=== PATIENT | female | born 1940 | race Caucasian/White ===

== ENCOUNTER 2017-11-14 13:02 | Inpatient (IN) | payer OTHER, MEDICARE ==
[~2017-11-14] VITALS: Ht 165.1 cm; Wt 74.8 kg
[2017-11-14 13:05] VITALS: BP 137/47
--- NOTE | 2017-11-14 13:19 | NUR ---
SUTURES REMOVED NO BLEEDING NO DRAINAGE.
--- NOTE | 2017-11-14 13:19 | NUR ---
PT AMBULATES TO BED 11
--- NOTE | 2017-11-14 13:22 | NUR ---
REPORT GIVEN TO JESUS RN, PT AMBULATED TO BED 11
--- NOTE | 2017-11-14 13:25 | NUR ---
PATIENT PRESENTS TO ED WITH COMPLAINTS OF WEAKNESS, SLOW HEARTBEAT, AND LOW BLOOD PRESSURE. PATIENT STATES SHE WAS AT DR OFFICE THIS MORNING FOR SAME ISSUE AND THEY ADVISED HER TO VISIT THE ER. DENIES N/V/D; SKIN IS PINK/WARM/DRY; AAOX4 WITH EVEN AND STEADY GAIT; LUNGS CLEAR BL; HR SLOW; PT DENIES ANY FEVER, CP, SOB, OR COUGH AT THIS TIME; PATIENT STATES PAIN OF 0/10 AT THIS TIME; VSS; PATIENT POSITIONED FOR COMFORT; HOB ELEVATED; BEDRAILS UP X1; BED DOWN. ER MD MADE AWARE OF PT STATUS.
[2017-11-14 14:41] LABS: BASOPHILS % (AUTO) 0.3 % (0.0-2.0); EOSINOPHILS % (AUTO) 0.5 % (0.0-4.0); HEMATOCRIT 30.9 % (36-48); HEMOGLOBIN 10.1 g/dL (12.0-16.0); LYMPHOCYTES # (AUTO) 2.2 K/uL (2.5-16.5); LYMPHOCYTES % (AUTO) 24.4 % (20.5-51.1); MEAN CORPUSCULAR HEMOGLOBIN 29 pg (27-31); MEAN CORPUSCULAR HGB CONC 33 g/dL (33-37); MEAN CORPUSCULAR VOLUME 88.6 fL (80-94); MONOCYTES # (AUTO) 1.2 K/uL (0.8-1.0); MONOCYTES % (AUTO) 12.8 % (1.7-9.3); NEUTROPHILS # (AUTO) 5.6 K/uL (1.8-7.7); PLATELET COUNT (AUTO) 233 K/uL (140-450); RED BLOOD CELL COUNT(AUTO) 3.49 MIL/uL (4.20-5.40)
[2017-11-14 14:47] LABS: APPEARANCE,URINE CLEAR (CLEAR); BLOOD, URINE NEGATIVE (NEGATIVE); COLOR,URINE YELLOW (YELLOW); LEUKOCYTE ESTERASE ,URINE 1+ (NEGATIVE); NITRITE, URINE POSITIVE (NEGATIVE); PH,URINE 5.5 (5.0-9.0); UGLUCOSE NEGATIVE (NEGATIVE)
[2017-11-14 14:57] LABS: PROTHROMBIN TIME 9.7 secs (10.8-13.4)
[2017-11-14 14:59] LABS: ANION GAP 9.1 (8-16); CHLORIDE 100 mmol/L (98-107); CREATININE 0.9 mg/dL (0.6-1.3); GLUCOSE 116 mg/dL (74-106); POTASSIUM 4.1 mmol/L (3.5-5.1); SODIUM SERUM 134 mmol/L (136-145); UREA NITROGEN, BLOOD 18 mg/dL (7-18)
[2017-11-14 15:03] LABS: BILIRUBIN,URINE NEGATIVE (NEGATIVE)
[2017-11-14 15:06] LABS: ASPARTATE AMINOTRANSFERASE 11 U/L (15-37); TOTAL BILIRUBIN 0.2 mg/dL (0.0-1.0)
[2017-11-14 15:29] LABS: RBC,URINE 3-10 (FEW) /HPF (0-5); WBC,URINE 16-25 (MOD) /HPF (0-5)
--- NOTE | 2017-11-14 15:34 | NUR ---
ESCORTED DR. SANCHEZ AT THIS TIME FOR RECTAL EXAM
[2017-11-14] MEDS ORDERED: INSULIN LISPRO SLIDING SCALE 100 UNITS/ML VIAL SUBQ PRN (17:05)
[2017-11-14] MEDS ORDERED: DEXTROSE 50% 50 ML SYR IVP PRN (17:05)
[2017-11-14] MEDS ORDERED: ONDANSETRON 4 MG/2 ML VIAL IVP PRN (17:05)
--- NOTE | 2017-11-14 17:56 | NUR ---
PT TAKEN TO FLOOR BY FOREIGN SALINAS AND EMT REJI
--- NOTE | 2017-11-14 17:56 | NUR ---
Patient will be admitted to care of DR. CAST. Admited to TELE. Will go to room 124B. Belongings list completed. Report to FOREIGN ESCAMILLA.
--- NOTE | 2017-11-14 18:10 | NUR ---
PATIENT ADMITTED TO THE UNIT FROM ER. PATIENT AWAKE, ALERT AND AMBULATORY. NO S/S OF DISTRESS. PATIENT IS ON ROOM AIR. NO SOB. NO C/O PAIN AT THIS TIME. PATIENT REPORTS GENERALIZED WEAKNESS. PATIENT PLACED ON TELE MONITORING. BED LOWERED WITH CALL LIGHT WITHIN REACH. DAUGHTER AT BEDSIDE
[2017-11-14] MEDS: LEVOFLOXACIN 250 MG/D5 PREMIX 50 ML IV SCH (18:26)
[2017-11-14 18:38] VITALS: BP 137/54
--- NOTE | 2017-11-14 19:21 | NUR ---
PATIENT REPORT GIVEN AT BEDSIDE. PATIENT ENDORSED IN STABLE CONDITION
--- NOTE | 2017-11-14 19:22 | NUR ---
RECEIVED BEDSIDE REPORT FROM DAY SHIFT NURSE FRANCINE RN, PT STABLE, NO DISTRESS NOTED, IV TO RAC 20G RUNNING LEVAQUIN @50ML/HR, PATENT, INTACT, INFUSING WELL, PT ON ROOM AIR, NO SOB, INITIAL ASSESSMENT DONE, ALL SAFETY PRECAUTION DONE, CALL LIGHT WITHIN REACH, WILL CONTINUE TO MONITOR.
[2017-11-14] MEDS: ACETAMINOPHEN 325 MG TAB PO PRN (19:51)
[2017-11-14 20:00] VITALS: BP_SYST 149; BP_SYST 87; BP_DIAS 30; BP_DIAS 41
[2017-11-14] MEDS ORDERED: LORA-476 PO (20:25)
[2017-11-14] MEDS ORDERED: ESCI10TA PO (20:25)
[2017-11-14] MEDS ORDERED: FAMO-90 PO (20:25)
[2017-11-14] MEDS ORDERED: METF1TER PO (20:25)
[2017-11-14] MEDS ORDERED: ENAL5TAB20 PO (20:25)
[2017-11-14] MEDS ORDERED: FERR325E14 PO (20:25)
[2017-11-14] MEDS ORDERED: OSC500 PO (20:25)
[2017-11-14] MEDS ORDERED: ORE25 PO (20:25)
[2017-11-14] MEDS ORDERED: SIMV10TA1 PO (20:25)
[2017-11-14] MEDS ORDERED: MECL-322 PO (20:25)
[2017-11-14] MEDS ORDERED: METO25TE2 PO (20:25)
[2017-11-14] MEDS ORDERED: MONT10TA35 PO (20:25)
[2017-11-14] MEDS ORDERED: [UNRECOGNIZED DRUG - OTHER] PO (20:26)
--- NOTE | 2017-11-14 20:34 | NUR ---
CALLED DR. CAST REGARDING NS ORDER WITH NO RATE, NOTIFIED REGARDING PT BP 87/30 ON THE L ARM AND 149/41 ON THE RIGHT ARM, STATED TO ORDER 100ML/HR, AND TO ORDER US OF THE ABD TO R/O AORTIC ANEURYSM. WILL PUT IN ORDERS AND CONTINUE WITH ORDERS.
[2017-11-14] MEDS: NACL 0.9% 1,000 ML IV SCH (21:33)
--- NOTE | 2017-11-14 21:33 | NUR ---
PT BLOOD SUGAR CHECKED, BS 92, NO INSULIN GIVEN PER PROTOCOL, PT RESTING, NO DISTRESS NOTED, CALL LIGHT WITHIN REACH, WILL CONTINUE TO MONITOR.
[2017-11-14] MEDS: BLOOD GLUCOSE MONITORING 1 DEV DEV FS SCH (21:34)
[2017-11-14 22:14] LABS: CREATINE KINASE MB 0.6 ng/mL (0-3.6)
--- NOTE | 2017-11-14 23:45 | NUR ---
CHECKED ON PT, PT SLEEPING, NO DISTRESS NOTED, V/S TAKEN, WITHIN PT BASELINE, CALL LIGHT WITHIN REACH, WILL CONTINUE TO MONITOR.
[2017-11-15] VITALS: BP_SYST 100; BP_SYST 148; BP_DIAS 34; BP_DIAS 42
[2017-11-15 04:00] VITALS: BP_SYST 113; BP_SYST 155; BP_DIAS 34; BP_DIAS 42
--- NOTE | 2017-11-15 04:11 | NUR ---
CHECKED ON PT, PT SLEEPING, NO DISTRESS NOTED, V/S TAKEN ,WITHIN PT BASELINE, NO DISTRESS NOTED, CALL LIGHT WITHIN REACH, WILL CONTINUE TO MONITOR.
[2017-11-15] MEDS: BLOOD GLUCOSE MONITORING 1 DEV DEV FS SCH ×4 (06:08→20:39)
--- NOTE | 2017-11-15 06:08 | NUR ---
CHECKED PT BLOOD SUGAR 90, NO INSULIN GIVEN PER PROTOCOL, PT RESTING, NO DISTRESS NOTED, CALL LIGHT WITHIN REACH, WILL CONTINUE TO MONITOR.
[2017-11-15 06:40] LABS: BASOPHILS % (AUTO) 0.3 % (0.0-2.0); EOSINOPHILS % (AUTO) 0.6 % (0.0-4.0); HEMATOCRIT 29.9 % (36-48); HEMOGLOBIN 9.9 g/dL (12.0-16.0); LYMPHOCYTES % (AUTO) 28.4 % (20.5-51.1); MEAN CORPUSCULAR HEMOGLOBIN 29 pg (27-31); MEAN CORPUSCULAR HGB CONC 33 g/dL (33-37); MEAN CORPUSCULAR VOLUME 88.1 fL (80-94); MONOCYTES # (AUTO) 0.9 K/uL (0.8-1.0); MONOCYTES % (AUTO) 12.6 % (1.7-9.3); NEUTROPHILS # (AUTO) 4.2 K/uL (1.8-7.7); NEUTROPHILS % (AUTO) 58.1 % (42.2-75.2); PLATELET COUNT (AUTO) 221 K/uL (140-450); RED BLOOD CELL COUNT(AUTO) 3.39 MIL/uL (4.20-5.40); RED CELL DISTRIBUTION WIDTH 14.6 % (11.6-13.7); WHITE BLOOD COUNT (AUTO) 7.1 K/uL (4.8-10.8)
[2017-11-15 06:53] LABS: CARBON DIOXIDE 30.8 mmol/L (21-32); CHLORIDE 104 mmol/L (98-107); CREATININE 0.8 mg/dL (0.6-1.3); GLUCOSE 92 mg/dL (74-106); POTASSIUM 4.8 mmol/L (3.5-5.1); SODIUM SERUM 137 mmol/L (136-145); UREA NITROGEN, BLOOD 15 mg/dL (7-18)
[2017-11-15 07:14] LABS: CREATINE KINASE MB 0.6 ng/mL (0-3.6)
--- NOTE | 2017-11-15 07:24 | NUR ---
ENDORSED PT TO DAY SHIFT NURSE LIONEL RN, PT STABLE, NO DISTRESS NOTED, CALL LIGHT WITHIN REACH.
--- NOTE | 2017-11-15 07:25 | NUR ---
RECEIVED BEDSIDE REPORT FROM STIPPLER NURSE. PATIENT IS AWAKE, ALERT AND ORIENTEDX4. NO SIGNS OF DISTRESS ON ROOM AIR. FALL PRECAUTIONS IN PLACE. PATIENT ABLE TO AMBULATE W ASSISTANCE. NO YELLOW GOWNS AT THIS TIME. SKIN IS INTACT. TELE MONITOR IN PLACE. IV ON R AC 20G INFUSING NS AT 100. CLEAN, DRY AND INTACT. NO COMPLAINTS AT THIS TIME. BED IN LOW POSITION. CALL LIGHT WITHIN REACH. WILL CONTINUE TO MONITOR
[2017-11-15 08:00] VITALS: BP_SYST 134; BP_SYST 155; BP_DIAS 39; BP_DIAS 42
--- NOTE | 2017-11-15 08:39 | NUR ---
PATIENT HAS BEEN SCREENED AND CATEGORIZED MODERATE NUTRITION RISK. PATIENT WILL BE SEEN WITHIN 3-5 DAYS OF ADMISSION. 10/17/17 10/19/[address]
[2017-11-15] MEDS: NACL 0.9% 1,000 ML IV SCH ×2 (09:33→13:04)
[2017-11-15] MEDS: ENOXAPARIN 40 MG/0.4 ML SYR SUBQ SCH (09:35)
--- NOTE | 2017-11-15 09:39 | NUR ---
ADMINISTERED MEDS. PATIENT TOLERATED WELL. BED IN LOW POSITION. CALL LIGHT WITHIN REACH. FAMILY AT BEDSIDE
[2017-11-15] MEDS ORDERED: MECLIZINE 25 MG TAB PO PRN (10:25)
[2017-11-15] MEDS ORDERED: LORazepam 0.5 MG TAB PO PRN (10:25)
--- NOTE | 2017-11-15 10:48 | NUR ---
PATIENT WATCHING TV. NO SIGNS OF DISTRESS. FAMILY AT BEDSIDE.
[2017-11-15 12:00] VITALS: BP_SYST 122; BP_SYST 161; BP_DIAS 42; BP_DIAS 48
--- NOTE | 2017-11-15 12:07 | NUR ---
PATIENT SITTING IN BED. NO SIGNS OF DISTRESS. BED IN LOW POSITION. CALL LIGHT WITHIN REACH. WILL CONTINUE TO MONITOR THE PATIENT
--- NOTE | 2017-11-15 13:05 | NUR ---
CM NOTE INITIAL REVIEW FAXED TO [facility] [phone]
[2017-11-15] MEDS: ACETAMINOPHEN 325 MG TAB PO PRN ×2 (13:57→20:36)
--- NOTE | 2017-11-15 13:58 | NUR ---
PATIENT COMPLAINTS OF A HYLTON. ADMINISTERED PRN TYLENOL. PATIENT TOLERATED WELL. BED IN LOW POSITION. CALL LIGHT WITHIN REACH. WILL CONTINUE TO MONITOR. FAMILY AT BEDSIDE.
[2017-11-15 16:00] VITALS: BP_SYST 144; BP_SYST 180; BP_DIAS 43; BP_DIAS 48
--- NOTE | 2017-11-15 16:06 | NUR ---
PATIENT W FAMILY AT BEDSIDE. NO SIGNS OF DISTRESS ON ROOM AIR. BED IN LOW POSITION. CALL LIGHT WITHIN REACH. WILL CONTINUE TO MONITOR THE PATIENT.
[2017-11-15] MEDS: LEVOFLOXACIN 250 MG/D5 PREMIX 50 ML IV SCH (18:11)
--- NOTE | 2017-11-15 18:12 | NUR ---
ADMINISTERED MEDS. PATIENT TOLERATED WELL. BED IN LOW POSITION. CALL LIGHT WITHIN REACH. FAMILY AT BEDSIDE. PATIENT IS EATING DINNER
--- NOTE | 2017-11-15 19:23 | NUR ---
GAVE BEDSIDE REPORT TO CORNER CUTTER MACHINE OPERATOR NURSE. PATIENT ENDORSED IN STABLE CONDITION
--- NOTE | 2017-11-15 19:24 | NUR ---
RECEIVED BEDSIDE REPORT FROM DAY SHIFT NURSE LIONEL RN, PT STABLE, NO DISTRESS NOTED, IV TO R AC 20G PATENT, INTACT, INFUSING WELL, PT ON ROOM AIR, NO SOB, FAMILY AT BEDSIDE, INITIAL ASSESSMENT DONE, ALL SAFETY PRECAUTION MET, WILL CONTINUE TO MONITOR.
[2017-11-15 20:00] VITALS: BP_SYST 129; BP_SYST 180; BP_DIAS 43; BP_DIAS 52
--- NOTE | 2017-11-15 20:00 | NUR ---
PT RESTING, V/S TAKEN, PT STATED HAVING HEADACHE, 4/10, PT IS HAVING US AT THIS MOMENT, WILL MEDICATE PT WHEN PROCEDURE IS DONE.
--- NOTE | 2017-11-15 20:39 | NUR ---
PT STATED HAVING HEADACHE 07/10, TYLENOL ORDERED ADMINISTERED, DUE MEDICATION ALSO ADMINISTERED, PT TOLERATED WELL, NO DISTRESS NOTED, FAMILY AT BEDSIDE, CALL LIGHT WITHIN REACH, WILL CONTINUE TO MONITOR.
[2017-11-15] MEDS ORDERED: SIMVASTATIN 10 MG TAB PO SCH (21:00)
[2017-11-15] MEDS ORDERED: HYDROcodone/APAP 5/325 MG 1 TAB TAB PO PRN (21:20)
--- NOTE | 2017-11-15 21:22 | NUR ---
CALLED DR. REDMOND REGARDING PT STATEMENT THAT PAIN MEDICATION TYLENOL IS NOT WORKING AND HER HEADACHE IS WORSENING, PT STATED IS NOT ALLERGIC TO MORPHINE OR IBUPROFEN STATED IN HMR, DR. REDMOND ORDERED NORCO 5/325MG Q6H PRN PAIN, WILL PUT IN ORDER, AND CONTINUE WITH ORDERS.
--- NOTE | 2017-11-15 23:11 | NUR ---
CHECKED ON PT SLEEPING, NO DISTRESS NOTED, V/S TAKEN, WITHIN PT BASELINE, NO DISTRESS NOTED, CALL LIGHT WITHIN REACH, WILL CONTINUE TO MONITOR.
[2017-11-16] VITALS: BP_SYST 111; BP_SYST 160; BP_DIAS 44; BP_DIAS 49
[2017-11-16 04:00] VITALS: BP_SYST 128; BP_SYST 170; BP_DIAS 48; BP_DIAS 53
--- NOTE | 2017-11-16 04:10 | NUR ---
PT RESTING, NO DISTRESS NOTED, CALL LIGHT WITHIN REACH, WILL CONTINUE TO MONITOR.
[2017-11-16] MEDS: NACL 0.9% 1,000 ML IV SCH (05:30)
[2017-11-16] MEDS: BLOOD GLUCOSE MONITORING 1 DEV DEV FS SCH (05:30)
--- NOTE | 2017-11-16 05:30 | NUR ---
CHECKED ON PT, PT RESTING, CHECKED PT BLOOD SUGAR, 90, NO INSULIN GIVEN PER PROTOCOL, PT TOLERATED WELL, NO DISTRESS NOTED CALL LIGHT WITHIN REACH, WILL CONTINUE TO MONITOR.
--- NOTE | 2017-11-16 07:27 | NUR ---
ENDORSED PT TO DAY SHIFT NURSE LIONEL RN, PT STABLE, NO DISTRESS NOTED, CALL LIGHT WITHIN REACH.
--- NOTE | 2017-11-16 07:30 | NUR ---
RECEIVED BEDSIDE REPORT FROM EMBALMER/FUNERAL DIRECTOR NURSE. PATIENT IS AWAKE, ALERT, AND ORIENTEDX4. NO SIGNS OF DISTRESS ON ROOM AIR. FALL PRECAUTIONS ARE IN PLACE. SHE AMBULATES W ASSISTANCE TO THE RESTROOM D/T GEN WEAKNESS. SKIN IS INTACT. R AC 20G INFUSING NS AT 100. CLEAN, DRY AND INTACT. NO COMPLAINTS AT THIS TIME. BED IN LOW POSITION. CALL LIGHT WITHIN REACH. WILL CONTINUE TO MONITOR
[2017-11-16 08:00] VITALS: BP_SYST 138; BP_SYST 174; BP_DIAS 57; BP_DIAS 63
[2017-11-16] MEDS ORDERED: metFORMIN 500 MG TAB PO SCH (08:00)
[2017-11-16] MEDS ORDERED: FERROUS SULFATE 325 MG TABEC PO SCH (08:00)
[2017-11-16] MEDS: ENOXAPARIN 40 MG/0.4 ML SYR SUBQ SCH (08:34)
--- NOTE | 2017-11-16 08:36 | NUR ---
ADMINISTERED MEDS. PATIENT TOLERATED WELL. NO COMPLAINTS AT THIS TIME. WILL CONTINUE TO MONITOR THE PATIENT. BED IN LOW POSITION. CALL LIGHT WITHIN REACH
[2017-11-16] MEDS ORDERED: ENALAPRIL 5 MG TAB PO SCH (09:00)
[2017-11-16] MEDS ORDERED: ESCITALOPRAM 20 MG TAB PO SCH (09:00)
[2017-11-16] MEDS ORDERED: MONTELUKAST SODIUM 10 MG TAB PO SCH (09:00)
--- NOTE | 2017-11-16 10:55 | NUR ---
EDUCATED PATIENT AND DAUGHTER ON DISEASE PROCESS, ABN S/SX AND WHEN TO GO TO THE NEAREST ER, EDUCATED TO CONTINUE ALL MEDS EXCEPT METROPOLOL, EDUCATED ON F/U W PCP. PATIENT AND DAUGHTER VERBALIZED UNDERSTANDING. ALL PAPERWORK SIGNED. ID BANDS REMOVED. TELE MONITOR REMOVED. IV REMOVED, IV TIP WAS INTACT. PATIENT LEFT IN WHEELCHAIR W DAUGHTER IN STABLE CONDITION.
--- NOTE | 2017-11-16 11:26 | NUR ---
CM NOTE CONCURRENT REVIEW FAXED TO [facility] [phone]
== END 2017-11-16 10:55 | disposition home or self-care (01) | DRG 48 ==
LOC: MED 13:02 → MTU 17:14
PROVIDERS: ADMIT Hospitalist; ATTEND Hospitalist
DX: G90.8 Other disorders of autonomic nervous system (principal); E11.9 Type 2 diabetes mellitus without complications; N39.0 Urinary tract infection, site not specified; E87.1 Hypo-osmolality and hyponatremia; R00.1 Bradycardia, unspecified; I10 Essential (primary) hypertension; Z88.0 Allergy status to penicillin; Z88.5 Allergy status to narcotic agent; E78.5 Hyperlipidemia, unspecified; I25.10 Atherosclerotic heart disease of native coronary artery without angina pectoris; Z95.5 Presence of coronary angioplasty implant and graft; Z88.8 Allergy status to other drugs, medicaments and biological substances; Z90.710 Acquired absence of both cervix and uterus; K52.9 Noninfective gastroenteritis and colitis, unspecified; K57.90 Diverticulosis of intestine, part unspecified, without perforation or abscess without bleeding; F17.210 Nicotine dependence, cigarettes, uncomplicated
CPT/HCPCS: 36415; 71045; 76700; 80048; 80053; 81001; 82550; 82553; 82948; 83735; 83880; 84443; 84484; 85025; 85610; 85730; 87081; 87086; 93005; 93930; 97110; 99285; J1650; J1815; J1956; J7030; Q0092

== ENCOUNTER 2018-03-09 12:29 | Inpatient (IN) | payer OTHER, MEDICARE ==
[~2018-03-09] VITALS: Ht 165.1 cm; Wt 72.6 kg
[~2018-03-09 12:29] MED LIST: ENAL5TAB20 PO; ESCI10TA PO; FAMO-90 PO; FERR325E14 PO; LORA-476 PO; MECL-322 PO; METF1TER PO; MONT10TA35 PO; ORE25 PO; OSC500 PO; SIMV10TA1 PO; [UNRECOGNIZED DRUG - OTHER] PO
--- NOTE | 2018-03-09 12:37 | NUR ---
PT AMBULATES TO BED 7 Addendum: 03/09/18 at 1237 by MEDHT BED 8
[2018-03-09 12:42] VITALS: BP 182/69
--- NOTE | 2018-03-09 12:50 | NUR ---
c/o fatigue, bodyaches, cough, congestion x 9 days. VSS; PATIENT POSITIONED FOR COMFORT; HOB ELEVATED; BEDRAILS UP X1; BED DOWN. ER MD MADE AWARE OF PT STATUS.
--- NOTE | 2018-03-09 12:52 | NUR ---
XRAY AT BEDSIDE
[2018-03-09] MEDS ORDERED: NACL 0.9% 500 ML IV SCH (13:30)
[2018-03-09 13:51] LABS: BASOPHILS % (AUTO) 0.4 % (0.0-2.0); EOSINOPHILS % (AUTO) 0.7 % (0.0-4.0); HEMATOCRIT 38.4 % (36-48); HEMOGLOBIN 12.1 g/dL (12.0-16.0); LYMPHOCYTES # (AUTO) 2.4 K/uL (2.5-16.5); LYMPHOCYTES % (AUTO) 36.7 % (20.5-51.1); MEAN CORPUSCULAR HEMOGLOBIN 28 pg (27-31); MEAN CORPUSCULAR HGB CONC 32 g/dL (33-37); MONOCYTES # (AUTO) 0.9 K/uL (0.8-1.0); NEUTROPHILS # (AUTO) 3.3 K/uL (1.8-7.7); NEUTROPHILS % (AUTO) 49.2 % (42.2-75.2); PLATELET COUNT (AUTO) 219 K/uL (140-450); RED BLOOD CELL COUNT(AUTO) 4.41 MIL/uL (4.20-5.40); RED CELL DISTRIBUTION WIDTH 15.1 % (11.6-13.7); WHITE BLOOD COUNT (AUTO) 6.6 K/uL (4.8-10.8)
--- NOTE | 2018-03-09 14:00 | NUR ---
PT SLEEPING, DAUGHTER IS AT BEDSIDE.
[2018-03-09 14:11] LABS: APPEARANCE,URINE CLEAR (CLEAR); BILIRUBIN,URINE NEGATIVE (NEGATIVE); BLOOD, URINE NEGATIVE (NEGATIVE); COLOR,URINE YELLOW (YELLOW); LEUKOCYTE ESTERASE ,URINE NEGATIVE (NEGATIVE); NITRITE, URINE NEGATIVE (NEGATIVE); UGLUCOSE NEGATIVE (NEGATIVE)
[2018-03-09 14:17] LABS: PROTHROMBIN TIME 9.7 secs (10.8-13.4)
[2018-03-09 14:28] LABS: ANION GAP 14.9 (8-16); CARBON DIOXIDE 25.2 mmol/L (21-32); CHLORIDE 101 mmol/L (98-107); GLUCOSE 96 mg/dL (74-106); POTASSIUM 4.1 mmol/L (3.5-5.1); SODIUM SERUM 137 mmol/L (136-145)
[2018-03-09 14:29] LABS: ASPARTATE AMINOTRANSFERASE 17 U/L (15-37); TOTAL BILIRUBIN 0.2 mg/dL (0.0-1.0); UREA NITROGEN, BLOOD 17 mg/dL (7-18)
[2018-03-09 14:37] LABS: ALBUMIN 3.3 g/dL (3.4-5.0)
--- NOTE | 2018-03-09 16:00 | NUR ---
PT IS LAYING IN BED SPEAKING TO DAUGHTER.
[2018-03-09] MEDS ORDERED: CLOPIDOGREL 75 MG TAB PO ONE (16:10)
[2018-03-09] MEDS ORDERED: hydrALAZINE 20 MG/ML VIAL IVP ONE (16:45)
[2018-03-09] MEDS ORDERED: HYDROcodone/APAP 5/325 MG 1 TAB TAB PO PRN (16:50)
[2018-03-09] MEDS ORDERED: ONDANSETRON 4 MG/2 ML VIAL IVP PRN (16:50)
[2018-03-09] MEDS ORDERED: ACETAMINOPHEN 325 MG TAB PO PRN (16:50)
[2018-03-09] MEDS ORDERED: INSULIN LISPRO SLIDING SCALE 100 UNITS/ML VIAL SUBQ PRN (16:55)
[2018-03-09] MEDS ORDERED: METO25TA PO (17:31)
[2018-03-09] MEDS ORDERED: ASPI81CT89 PO (17:31)
[2018-03-09] MEDS ORDERED: CARV3.12 PO (17:31)
[2018-03-09] MEDS ORDERED: ALEN70TA52 PO (17:31)
--- NOTE | 2018-03-09 17:31 | NUR ---
PT TAKEN TO FLOOR BY RN RITA, EMT REJI, AND RN STUDENTS
[2018-03-09 17:40] VITALS: BP 170/52
--- NOTE | 2018-03-09 17:40 | NUR ---
Patient will be admitted to care of DR. CAST. Admited to TELE. Will go to room 112A. Belongings list completed. Report to PHAN CARRASQUILLO.
--- NOTE | 2018-03-09 17:40 | NUR ---
RECEIVED PT FROM ER NURSE VIA DANNA, PT IS ALERT AND AWAKE AND AMBULATED TO THE BED, PT WAS MADE COMFORTABLE ON THE BED, SIDE RAILS ARE UP AND CALL LIGHT WITHIN REACH. PT HAS AN IV LINE ON THE LEFT WRIST G. 22 ON SALINE LOCK. ALLERGY BAND NOTED AND PLACED TO PT. PT DENIES PAIN, INITIAL V/S WAS TAKEN AND BP RESULT IS 170/52, PULSE IS 71, TEMP IS 99 AND O2 SATURATION IS 98%. NO SIGN OF DISTRESS NOTED. WILL CONTINUE TO MONITOR PT.
--- NOTE | 2018-03-09 17:47 | NUR ---
MRSA SWAB DONE AND SAMPLE SENT TO LAB.
[2018-03-09] MEDS ORDERED: LEVOFLOXACIN 250 MG/D5 PREMIX 50 ML IV SCH (18:30)
--- NOTE | 2018-03-09 18:52 | NUR ---
PT IS AWAKE AND STARTED ON THE LEVOFLOXACIN AT A RATE OF 50ML/HR. PT TOLERATED IT AND NO SIGN OF DISTRESS NOTED. WILL, CONTINUE TO MONITOR PT.
--- NOTE | 2018-03-09 19:35 | NUR ---
ENDORSED PT TO AUTOMOTIVE PROFESSIONAL NURSEALLEGRA FOR CONTINUITY OF CARE, AND INFORMED AUTOMOTIVE PROFESSIONAL NURSE, ALLEGRA OF PT'S BP READING.NO SIGN OF DISTRESS NOTED.
--- NOTE | 2018-03-09 19:36 | NUR ---
RECEIVED REPORT FROM DAY SHIFT NURSE PHAN-RN AT BEDSIDE. PT RESTING IN BED, AOX4- MEXICAN SPEAKING, ON ROOM AIR WITH IV SITE ON LEFT WRIST #22G ON SALINE LOCK. ACTIVITY TOLERATED, ABLE TO AMBULATE TO BATHROOM- STABLE GAIT. DISCUSSED PLAN OF CARE AND PT VERBALIZED UNDERSTANDING. NO S/S OF RESPIRATORY DISTRESS OR DISCOMFORT NOTED AT THIS TIME. BED IN LOWEST POSITION, BED BREAKS ON, BOTH SIDE RAILS UP. BEDSIDE TABLE AND CALL LIGHT ARE WITHIN REACH. WILL CONTINUE TO MONITOR.
[2018-03-09 20:00] VITALS: BP 151/44
--- NOTE | 2018-03-09 20:00 | NUR ---
VITAL SIGNS TAKEN AND TOLERATED WELL. INCREASED BP NOTED. WILL RE-ASSESS. BLOOD GLUCOSE 92- WILL PROVIDE BEDTIME SNACK. NO S/S OF RESPIRATORY DISTRESS OR DISCOMFORT NOTED AT THIS TIME. WILL CONTINUE TO MONITOR.
[2018-03-09] MEDS: guaiFENesin/CODEINE 100/10MG 5 ML UDC PO SCH (20:42)
[2018-03-09] MEDS: BLOOD GLUCOSE MONITORING 1 DEV DEV FS SCH (20:42)
[2018-03-09] MEDS: ACETAMINOPHEN 325 MG TAB PO PRN (20:42)
--- NOTE | 2018-03-09 20:42 | NUR ---
SCHEDULED MEDICATION ROBITUSSIN GIVEN AND TOLERATED WELL. PT C/O HEADACHE AND TYLENOL WAS GIVEN. PT TOLERATED WELL. NO S/S OF RESPIRATORY DISTRESS OR DISCOMFORT NOTED AT THIS TIME. WILL CONTINUE TO MONITOR.
--- NOTE | 2018-03-09 22:00 | NUR ---
PT RESTING IN BED. NO S/S OF RESPIRATORY DISTRESS OR DISCOMFORT NOTED AT THIS TIME. WILL CONTINUE TO MONITOR.
[2018-03-10] VITALS: BP 127/54
--- NOTE | 2018-03-10 | NUR ---
VITAL SIGNS TAKEN AND TOLERATED WELL. BP HAS DECREASED. NO S/S OF RESPIRATORY DISTRESS OR DISCOMFORT NOTED AT THIS TIME. WILL CONTINUE TO MONITOR.
--- NOTE | 2018-03-10 02:00 | NUR ---
PT SLEEPING. NO S/S OF RESPIRATORY DISTRESS OR DISCOMFORT NOTED AT THIS TIME. WILL CONTINUE TO MONITOR.
[2018-03-10 04:00] VITALS: BP 148/51
--- NOTE | 2018-03-10 04:00 | NUR ---
VITAL SIGNS TAKEN AND TOLERATED WELL. NO S/S OF RESPIRATORY DISTRESS OR DISCOMFORT NOTED AT THIS TIME. WILL CONTINUE TO MONITOR.
--- NOTE | 2018-03-10 06:00 | NUR ---
BLOOD GLUCOSE 107- NO INSULIN COVERAGE NEEDED. PT RESTING IN BED. NO S/S OF RESPIRATORY DISTRESS OR DISCOMFORT NOTED AT THIS TIME. WILL CONTINUE TO MONITOR.
[2018-03-10] MEDS: BLOOD GLUCOSE MONITORING 1 DEV DEV FS SCH ×3 (06:22→16:59)
--- NOTE | 2018-03-10 07:04 | NUR ---
ENDORSED PT CARE TO DAY SHIFT NURSE ANGELICA-FOREIGN FOR CONTINUITY OF CARE.
--- NOTE | 2018-03-10 07:08 | NUR ---
RECEIVED BEDSIDE REPORT FROM DIGITAL CARTOGRAPHER RN. PT SLEEPING IN BED, AROUSABLE BY VOICE. AOX4. PRIMARILY MONGOLIAN SPEAKING. NO S/S RESPIRATORY DISTRESS. DENIES SOB AND CHEST PAIN. C/O MILD HEADACHE, WILL OFFER TYLENOL. IV SITE PATENT AND ASYMPTOMATIC, ON SL. PT IS AMBULATORY PER DIGITAL CARTOGRAPHER. ALL SAFETY PRECAUTIONS IN PLACE, WILL CONTINUE TO MONITOR.
[2018-03-10 08:00] VITALS: BP 146/47
[2018-03-10] MEDS: ACETAMINOPHEN 325 MG TAB PO PRN (08:44)
[2018-03-10] MEDS: guaiFENesin/CODEINE 100/10MG 5 ML UDC PO SCH (08:44)
--- NOTE | 2018-03-10 08:47 | NUR ---
SCHEDULED MEDS ADMINISTERED PER DR. LANDRY. ADMINISTERED TYLENOL FOR C/O 2/10 MILD HEADACHE. WILL CONTINUE TO MONITOR.
[2018-03-10] MEDS ORDERED: ENOXAPARIN 40 MG/0.4 ML SYR SUBQ SCH (09:00)
[2018-03-10 09:01] LABS: BASOPHILS % (AUTO) 0.2 % (0.0-2.0); EOSINOPHILS % (AUTO) 0.6 % (0.0-4.0); HEMATOCRIT 39.1 % (36-48); HEMOGLOBIN 12.3 g/dL (12.0-16.0); LYMPHOCYTES # (AUTO) 2.5 K/uL (2.5-16.5); LYMPHOCYTES % (AUTO) 40.8 % (20.5-51.1); MEAN CORPUSCULAR HEMOGLOBIN 27 pg (27-31); MEAN CORPUSCULAR HGB CONC 32 g/dL (33-37); MEAN CORPUSCULAR VOLUME 86.7 fL (80-94); MONOCYTES # (AUTO) 0.4 K/uL (0.8-1.0); MONOCYTES % (AUTO) 6.4 % (1.7-9.3); NEUTROPHILS # (AUTO) 3.1 K/uL (1.8-7.7); PLATELET COUNT (AUTO) 230 K/uL (140-450); RED CELL DISTRIBUTION WIDTH 15.2 % (11.6-13.7)
[2018-03-10 09:15] LABS: ALBUMIN 3.3 g/dL (3.4-5.0); ANION GAP 15.5 (8-16); ASPARTATE AMINOTRANSFERASE 15 U/L (15-37); CARBON DIOXIDE 25.3 mmol/L (21-32); CHLORIDE 101 mmol/L (98-107); CREATININE 0.9 mg/dL (0.6-1.3); GLUCOSE 171 mg/dL (74-106); POTASSIUM 3.8 mmol/L (3.5-5.1); SODIUM SERUM 138 mmol/L (136-145); TOTAL BILIRUBIN 0.2 mg/dL (0.0-1.0); UREA NITROGEN, BLOOD 13 mg/dL (7-18)
--- NOTE | 2018-03-10 11:05 | NUR ---
PT RESTING IN BED. FAMILY MEMBERS AT BEDSIDE. ALL SAFETY PRECAUTIONS IN PLACE, WILL CONTINUE TO MONITOR.
[2018-03-10 12:00] VITALS: BP 130/58
--- NOTE | 2018-03-10 12:45 | NUR ---
PT RESTING IN BED. VITALS STABLE. NO C/O PAIN OR DISCOMFORT AT THIS TIME. WILL CONTINUE TO MONITOR.
--- NOTE | 2018-03-10 14:28 | NUR ---
DR. CAST HAS SPOKEN TO PATIENT REGARDING PLAN OF CARE. PT CAN BE DISCHARGED IF OK BY RADIAL DRILL OPERATOR.
--- NOTE | 2018-03-10 15:28 | NUR ---
CALLED DR. LEON. PER DR. LEON, PATIENT IS OKAY TO HOME. DR. LEON WANTS PATIENT TO F/U WITH HIM WITHIN ONE WEEK.
[2018-03-10 16:00] VITALS: BP 133/58
[2018-03-10] MEDS ORDERED: INFLUENZA VIRUS VACCINE QUAD 0.5 ML SYR IMVAC PRN (16:35)
--- NOTE | 2018-03-10 17:36 | NUR ---
ASKED SWIMMING POOL MAINTENANCE JENARO TO TRY TO OBTAIN INFLUENZA VACCINE FOR PATIENT.
--- NOTE | 2018-03-10 17:52 | NUR ---
ADMINISTERED FLU VACCINE FROM [facility]. UNABLE TO SCAN IN EMAR. MFD BY [employer] LOT [id number] EXP 09/29/2018
--- NOTE | 2018-03-10 18:02 | NUR ---
DISCHARGE PAPERWORK, INCLUDING INSTRUCTIONS TO FOLLOW UP WITH PCP, GIVEN TO PATIENT. PT IS PRIMARILY NEW ZEALANDER SPEAKING BUT PREFERS FAMILY MEMBER AT BEDSIDE TO TRANSLATE. PATIENT STATES SHE SEES A REGULAR PCP. REINFORCED THE NEED TO FOLLOW UP WITH PCP WITHIN ONE WEEK. MEDICATION RECONCILIATION TEACHING GIVEN. PT AND FAMILY MEMBER VERBALIZED COMPLETE UNDERSTANDING OF ALL D/C TEACHING. IV SITE REMOVED WITH MINIMAL BLOOD LOSS AND LUMEN COMPLETELY INTACT. ID BANDS REMOVED. ALL Addendum: 03/10/18 at 1812 by Esther Rosenthal Meng, RN DISCHARGE PAPERWORK, INCLUDING INSTRUCTIONS TO FOLLOW UP WITH PCP, GIVEN TO PATIENT. PT IS PRIMARILY NEW ZEALANDER SPEAKING BUT PREFERS FAMILY MEMBER AT BEDSIDE TO TRANSLATE. PATIENT STATES SHE SEES A REGULAR PCP. REINFORCED THE NEED TO FOLLOW UP WITH PCP WITHIN ONE WEEK. MEDICATION RECONCILIATION TEACHING GIVEN. PT AND FAMILY MEMBER VERBALIZED COMPLETE UNDERSTANDING OF ALL D/C TEACHING. IV SITE REMOVED WITH MINIMAL BLOOD LOSS AND LUMEN COMPLETELY INTACT. ID BANDS REMOVED. ALL PERSONAL BELONGINGS ARE WITH PATIENT. PT WILL GET DRESSED AND LEAVE UNIT FOR HOME VIA PRIVATE VEHICLE WITH FAMILY MEMBERS.
--- NOTE | 2018-03-10 18:18 | NUR ---
PATIENT HAS LEFT UNIT WITH FAMILY MEMBERS. IN STABLE CONDITION.
--- NOTE | 2018-03-11 14:53 | NUR ---
CM NOTE PER TRISTAN OF [facility] (PCP) PH# [phone], PATIENT IS SCHEDULED TO FOLLOW UP ON 03/13/18 10:45 AM AT THE CLINIC IN [address] [place] [address]. PATIENT MADE AWARE PH# [phone].
== END 2018-03-10 18:17 | disposition home or self-care (01) | DRG 203 ==
LOC: MED 12:29 → MTU 16:46
PROVIDERS: ADMIT Hospitalist; ATTEND Hospitalist
DX: R07.89 Other chest pain (principal); E11.9 Type 2 diabetes mellitus without complications; I10 Essential (primary) hypertension; Z88.5 Allergy status to narcotic agent; Z88.0 Allergy status to penicillin; Z88.8 Allergy status to other drugs, medicaments and biological substances; Z79.899 Other long term (current) drug therapy; Z79.84 Long term (current) use of oral hypoglycemic drugs
CPT/HCPCS: 36415; 71045; 80053; 81003; 82948; 83605; 83880; 84484; 85025; 85610; 85730; 87040; 87081; 87086; 87804; 93005; 96374; 99285; J0360; J1650; J1815; J1956; J7030

== ENCOUNTER 2018-07-11 12:36 | Emergency (ER) | payer OTHER, MEDICARE ==
[~2018-07-11] VITALS: Ht 165.1 cm; Wt 73.0 kg
[~2018-07-11 12:36] MED LIST changes: +ALEN70TA9 PO; +ASPI-1718 PO; +CARV3.12 PO; -OSC500 PO
[2018-07-11 12:50] VITALS: BP 158/50
--- NOTE | 2018-07-11 12:50 | NUR ---
PATIENT AMBULATED TO BED 3.
--- NOTE | 2018-07-11 12:55 | NUR ---
77 Y FEMALE BIB FAMILY C/O RIGHT LEG PAIN X 3 WEEKS, DENIES TRAUMA OR FALL, PT REPORTS PAIN TO RIGHT BUTTOCK RADIATING DOWN LEG, C/O TINGLING. PAIN 10/10. BED IS DOWN, LOCKED, BED RAIL X 1, ERMD NOTIFIED. PT STATES SHE SAW HER PMD AND WAS WAITING FOR REFERRALS, PAIN WORSENED LAST NIGHT SO SHE CAME INTO THE ER HX DM, HTN, HYPERLIPIDEMIA
--- NOTE | 2018-07-11 12:55 | NUR ---
ASSESSMENT COMPLETED BY KIRSTEN CARRASQUILLO
[2018-07-11 13:45] VITALS: BP 132/62
--- NOTE | 2018-07-11 13:45 | NUR ---
Patient discharged with v/s stable. Written and verbal after care instructions given and explained. Patient alert, oriented and verbalized understanding of instructions. Ambulatory with steady gait. All questions addressed prior to discharge. ID band removed. Patient advised to follow up with PMD. Rx of GABAPENTIN given. Patient educated on indication of medication including possible reaction and side effects. Opportunity to ask questions provided and answered.
== END 2018-07-11 13:45 | disposition home or self-care (01) ==
LOC: MED 12:36
DX: M54.41 Lumbago with sciatica, right side (principal); E11.9 Type 2 diabetes mellitus without complications; I10 Essential (primary) hypertension; Z79.82 Long term (current) use of aspirin; Z79.899 Other long term (current) drug therapy; Z88.0 Allergy status to penicillin; Z88.6 Allergy status to analgesic agent; Z88.5 Allergy status to narcotic agent; Z79.84 Long term (current) use of oral hypoglycemic drugs
CPT/HCPCS: 99283

== ENCOUNTER 2018-08-14 10:55 | Emergency (ER) | payer MEDICARE, OTHER ==
[~2018-08-14] VITALS: Ht 165.1 cm; Wt 78.0 kg
[2018-08-14 11:02] VITALS: BP 167/55
--- NOTE | 2018-08-14 11:02 | NUR ---
PATIENT AMBULATED TO BED 11 AT THIS TIME.
--- NOTE | 2018-08-14 11:05 | NUR ---
77 Y FEMALE BIB FAMILY C/O SOB. DENIES CHEST PAIN. DENIES NAUSEA/VOMITING. DIMINISHED BREATH SOUNDS BILATERALLY. RT SCIATICA PAIN 01/09. FEELING WEAK AND TIRED WITH AMBULATION. DENIES DIZZINESS. PT PLACED ON MONITOR. NORMAL RESPIRATORY PATTERN. RR AT 16. OXYGEN AT 97 ON RA. PT ALERT AND ORIENTED. BED IS DOWN, LOCKED, BED RAIL X 1, ERMD TO SEE PT. HX: HTN,DM,HIGH CHOL. RX- SEE MED RECON
--- NOTE | 2018-08-14 11:10 | NUR ---
pt amb to restroom with assistance for urine sample
--- NOTE | 2018-08-14 11:16 | NUR ---
BS 89, REPORTED TO DR LEVI
[2018-08-14] MEDS ORDERED: predniSONE 20 MG TAB PO ONE (11:20)
[2018-08-14] MEDS ORDERED: ALBUTEROL 0.083% 2.5 MG/3 ML NEBU INH ONE (11:20)
[2018-08-14] MEDS ORDERED: ALBUTEROL SULFATE/IPRATROPIU 3 ML SOL IH ONE (11:20)
[2018-08-14] MEDS ORDERED: GABA300C PO (11:27)
[2018-08-14] MEDS ORDERED: METF1TER PO (11:27)
--- NOTE | 2018-08-14 11:33 | NUR ---
ADMITTING DX: SOB HX: DENIES ASTHMA/COPD AWAKE AND ALERT HFW POSITION DAUGHTER BARNEY AT [facility] INTERPRETOR EDUCATION PROVIDED WITH ACKOWLEDGEMENT TO PATIENT AND DAUGHTER ON HHN THERAPY AND RESPIRATORY DRUGS FOREMENTIONED GIVEN ORDERED ENCOURAGED PATIENT FOR DEEP BREATHING DURING THERAPY TOLERATED T WELL WITHOUT INCIDENT
--- NOTE | 2018-08-14 11:37 | NUR ---
RT AT BEDSIDE FOR BREATHIGN TREATMENT
--- NOTE | 2018-08-14 11:52 | NUR ---
RAD AT BEDSIDE
--- NOTE | 2018-08-14 12:17 | NUR ---
VSS AT THIS TIME. PT ALERT, AWAKE, AND ORIENTED. DAUGHTER BEDSIDE. PAIN 09/09 RT SCIATIC
--- NOTE | 2018-08-14 12:26 | NUR ---
Patient discharged with v/s stable. Written and verbal after care instructions given and explained. Patient alert, oriented and verbalized understanding of instructions. Ambulatory with steady gait. All questions addressed prior to discharge. ID band removed. Patient advised to follow up with PMD. Rx of CIPRO, PREDNISONE, ALBUTEROL, NORCO given. Patient educated on indication of medication including possible reaction and side effects. Opportunity to ask questions provided and answered. DAUGHTER BEDSIDE FOR TRANSLATION.
[2018-08-14 12:28] VITALS: BP 141/40
== END 2018-08-14 12:26 | disposition home or self-care (01) ==
LOC: MED 10:55
DX: R06.02 Shortness of breath (principal); M79.604 Pain in right leg; N39.0 Urinary tract infection, site not specified; E11.9 Type 2 diabetes mellitus without complications; I10 Essential (primary) hypertension; Z79.899 Other long term (current) drug therapy; Z88.0 Allergy status to penicillin; Z88.5 Allergy status to narcotic agent; Z88.8 Allergy status to other drugs, medicaments and biological substances
CPT/HCPCS: 71045; 81002; 94640; 99283; J7512; J7613; J7620; Q0092

== ENCOUNTER 2020-09-29 07:21 | Inpatient (IN) | payer OTHER, MEDICAID, SELFPAY ==
[~2020-09-29] VITALS: Ht 165.1 cm; Wt 75.7 kg
[~2020-09-29 07:21] MED LIST changes: -ALEN70TA9 PO; -ASPI-1718 PO; -ENAL5TAB20 PO; +ENAL5TAB34 PO; -FAMO-90 PO; +GABA300C PO; -LORA-476 PO; -SIMV10TA1 PO; -[UNRECOGNIZED DRUG - OTHER] PO
--- NOTE | 2020-09-29 07:21 | NUR ---
BIBA TO BED 12
[2020-09-29 07:24] VITALS: BP 185/63
--- NOTE | 2020-09-29 07:25 | NUR ---
79 Y/O FEMALE BIBA FROM HOME C/O SOB X2 HOURS. PT USED ALBUTEROL WITHOUT RELIEF. WHEEZES AUSCULATED UPPER LOBES BILATERAL WITH CRACKLES IN BILATERAL LOWER LOBES. CAP REFILL <3 SECONDS. PT DENIES PAIN AT THIS TIME. DENIES N/V. PT A/O X4 WITH LABORED RESPIRATIONS. PT SITTING 90 DEGREES IN BED WITH BED IN LOWEST POSITION, BRAKES LOCKED, X2 SIDERAILS UP FOR SAFETY. PT IN GOWN ON OFFICE MAIL CLERK. CALL LIGHT WITHIN REACH. SPO2 94% ON RA. 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
--- NOTE | 2020-09-29 07:30 | NUR ---
DR CARRANZA AT BEDSIDE EVALUATING PT
[2020-09-29] MEDS ORDERED: ASPIRIN 81 MG TAB.CHEW PO ONE (07:45)
[2020-09-29] MEDS ORDERED: IPRATROPIUM 0.02% 0.5 MG/2.5 ML NEBU INH ONE (07:45)
[2020-09-29] MEDS ORDERED: ALBUTEROL 0.083% 2.5 MG/3 ML NEBU INH ONE (07:45)
--- NOTE | 2020-09-29 07:56 | NUR ---
RAD AT BEDSIDE
--- NOTE | 2020-09-29 08:01 | NUR ---
RT AT BEDSIDE
[2020-09-29] MEDS ORDERED: VOL25 PO (08:02)
[2020-09-29] MEDS ORDERED: OMEP20EC11 PO (08:02)
[2020-09-29] MEDS ORDERED: ATOR10TA PO (08:02)
[2020-09-29] MEDS ORDERED: LOSA100T1 PO (08:02)
[2020-09-29] MEDS ORDERED: ASPI-1205 PO (08:02)
[2020-09-29] MEDS ORDERED: LORA10TA19 PO (08:02)
[2020-09-29] MEDS ORDERED: FURO-570 PO (08:02)
--- NOTE | 2020-09-29 08:22 | NUR ---
PT AMBULATED TO RESTROOM WITH WALKER FOR URINE SAMPLE
--- NOTE | 2020-09-29 08:47 | NUR ---
LAB AT BEDSIDE FOR BLOOD DRAW FOR BLOOD CULTURES. URINE SAMPLE GIVEN TO OPERATIONAL INTELLIGENCE OFFICER
[2020-09-29] MEDS ORDERED: FUROSEMIDE 20 MG/2 ML VIAL IVP ONE (09:25)
[2020-09-29] MEDS ORDERED: LORazepam 2 MG/ML VIAL IVP ONE (09:25)
--- NOTE | 2020-09-29 09:26 | NUR ---
PT PLACED ON 2L N/C BY DR CARRANZA. SPO2 98%.
[2020-09-29 09:35] LABS: APPEARANCE,URINE CLEAR (CLEAR); BILIRUBIN,URINE NEGATIVE (NEGATIVE); BLOOD, URINE NEGATIVE (NEGATIVE); COLOR,URINE YELLOW (YELLOW); LEUKOCYTE ESTERASE ,URINE TRACE (NEGATIVE); NITRITE, URINE NEGATIVE (NEGATIVE); UGLUCOSE NEGATIVE (NEGATIVE)
[2020-09-29 09:41] LABS: RBC,URINE 0-5 /HPF (0-5); WBC,URINE 0-5 /HPF (0-5)
[2020-09-29 09:46] LABS: BASOPHILS % (AUTO) 0.3 % (0.0-2.0); EOSINOPHILS % (AUTO) 0.3 % (0.0-4.0); HEMATOCRIT 30.1 % (36-48); HEMOGLOBIN 9.7 g/dL (12.0-16.0); LYMPHOCYTES # (AUTO) 1.1 K/uL (2.5-16.5); LYMPHOCYTES % (AUTO) 14.1 % (20.5-51.1); MEAN CORPUSCULAR HEMOGLOBIN 30 pg (27-31); MEAN CORPUSCULAR HGB CONC 32 g/dL (33-37); MEAN CORPUSCULAR VOLUME 91.2 fL (80-94); MONOCYTES # (AUTO) 0.7 K/uL (0.8-1.0); MONOCYTES % (AUTO) 9.1 % (1.7-9.3); NEUTROPHILS # (AUTO) 6.2 K/uL (1.8-7.7); NEUTROPHILS % (AUTO) 76.2 % (42.2-75.2); PLATELET COUNT (AUTO) 227 K/uL (140-450); RED CELL DISTRIBUTION WIDTH 15.1 % (11.6-13.7); WHITE BLOOD COUNT (AUTO) 8.1 K/uL (4.8-10.8)
[2020-09-29 09:57] LABS: ALBUMIN 3.2 g/dL (3.4-5.0); ANION GAP 11.8 (8-16); ASPARTATE AMINOTRANSFERASE 17 U/L (15-37); CARBON DIOXIDE 24.9 mmol/L (21-32); CHLORIDE 108 mmol/L (98-107); GLUCOSE 137 mg/dL (74-106); POTASSIUM 4.7 mmol/L (3.5-5.1); SODIUM SERUM 140 mmol/L (136-145); TOTAL BILIRUBIN 0.3 mg/dL (0.0-1.0); UREA NITROGEN, BLOOD 21 mg/dL (7-18)
--- NOTE | 2020-09-29 13:13 | NUR ---
ISAAC MENDEZ SAMPLE COLLECTED AND WALKED TO LAB
--- NOTE | 2020-09-29 13:15 | NUR ---
VANESSA SWAB DONE. WALKED TO LAB.
--- NOTE | 2020-09-29 14:48 | NUR ---
PT AMBULATED WITH WALKER TO RESTROOM. PT BACK ON MONITOR. VSS. WILL CONTINUE TO MONITOR.
[2020-09-29] MEDS ORDERED: MORPHINE SULFATE 2 MG/ML SYR IVP PRN (15:40)
[2020-09-29] MEDS ORDERED: ACETAMINOPHEN 325 MG TAB PO PRN (15:40)
[2020-09-29] MEDS ORDERED: ALBUTEROL 0.083% 2.5 MG/3 ML NEBU INH PRN (15:40)
[2020-09-29] MEDS ORDERED: ONDANSETRON 4 MG/2 ML VIAL IVP PRN (15:40)
[2020-09-29] MEDS ORDERED: LORazepam 2 MG/ML VIAL IM/IVP PRN (16:45)
[2020-09-29] MEDS ORDERED: hydrALAZINE 20 MG/ML VIAL IVP PRN (16:50)
--- NOTE | 2020-09-29 16:53 | NUR ---
PT SLEEPING IN BED WITH EVEN AND UNLABORED RESPIRATIONS. PT ON PIT FURNACE MELTER & OXYGEN. VSS. WILL CONTINUE TO MONITOR.
--- NOTE | 2020-09-29 17:35 | NUR ---
PT C/O ANXIETY. PRN ATIVAN GIVEN ORDERED.
[2020-09-29 17:41] LABS: CREATINE KINASE MB 0.9 ng/mL (0-3.6)
--- NOTE | 2020-09-29 18:17 | NUR ---
PT REPOSITIONED IN BED. PT GIVEN BREAKFAST TRAY.
--- NOTE | 2020-09-29 18:17 | NUR ---
DR LEON AT BEDSIDE EVALUATING PT.
--- NOTE | 2020-09-29 18:36 | NUR ---
RT AT BEDSIDE FOR BREATHING TREAMENT.
[2020-09-29] MEDS: IPRATROPIUM 0.02% 0.5 MG/2.5 ML NEBU INH SCH (18:38)
--- NOTE | 2020-09-29 19:12 | NUR ---
REPORT GIVEN TO PARMJIT CARRASQUILLO, TRANSFER OF CARE AT THIS TIME.
--- NOTE | 2020-09-29 19:13 | NUR ---
RECIEVED REPORT FROM FOREIGN GRACIA FOR CONTINUITY OF CARE.
--- NOTE | 2020-09-29 19:40 | NUR ---
Patient will be admitted to care of MD ESTRELLITA. Admited to TELEMETRY. Will go to room 110B. Belongings list completed. Report to FOREIGN AMEZQUITA.
--- NOTE | 2020-09-29 20:00 | NUR ---
PT TAKEN TO TELE 110 B WITH PARMJIT CARRASQUILLO AND AJ CARRASQUILLO.
--- NOTE | 2020-09-29 20:10 | NUR ---
PATIENT ARRIVED ON THE FLOOR FROM ER VIA GURNEY, ALERT AND ORIENTED SAUDI ARABIAN SPEAKING ONLY WITH NO SIGNS OF DISTRESS AT 2 LPM VIA NC, TOLERATING WELL.
[2020-09-29] MEDS ORDERED: carvediloL 3.125 MG TAB PO SCH (21:00)
--- NOTE | 2020-09-29 21:00 | NUR ---
NASAL SWAB FOR MRSA, HEAD TO TOE ASSESSMENT WAS DONE, SKIN IS INTACT. ALL DUE MEDS WERE GIVEN BY MOUTH TOLERATED WELL BY THE PATIENT.
[2020-09-29] MEDS: FUROSEMIDE 40 MG/4 ML VIAL IVP SCH (21:54)
--- NOTE | 2020-09-29 22:00 | NUR ---
PATIENT ASKED ASSISTANCE TO AMBULATE TO THE BATHROOM, PATIENT IS NEEDING A BESIDE COMMODE TO USE TO PREVENT FROM FALLING.
[2020-09-29] MEDS: DICLOFENAC 25 MG TABEC PO SCH (22:32)
[2020-09-30] VITALS: BP 122/40
--- NOTE | 2020-09-30 | NUR ---
PATIENT WAS CALMLY ASLEEP.
--- NOTE | 2020-09-30 00:30 | NUR ---
LAB CALLED A TROP LEVEL OF 0.168, RN CALLED THE DR. LEON CARDIO , MADE INSTRUCTIONS TO CALL IN ONLY TROP VALUE ABOVE 1.0
[2020-09-30] MEDS: IPRATROPIUM 0.02% 0.5 MG/2.5 ML NEBU INH SCH ×3 (01:55→19:56)
--- NOTE | 2020-09-30 01:55 | NUR ---
PT IS SLEEPING IN BED, IN NO DISTRESS. SAW PT IN ER BEFORE TRANSFER TO THE FLOOR. NO TREATMENT GIVEN AT THIS TIME, INFORMED FOREIGN MONTE OF PRN TREATMENTS IF NEEDED FOR PT, WHEN PT AWAKES. WILL CONTINUE TO MONITOR
--- NOTE | 2020-09-30 03:00 | NUR ---
PATIENT ASKED HELP TO AMBULATE TO THE BATHROOM.
[2020-09-30 04:00] VITALS: BP 123/46
[2020-09-30 06:49] LABS: ANION GAP 12.6 (8-16); CARBON DIOXIDE 29.9 mmol/L (21-32); CHLORIDE 106 mmol/L (98-107); GLUCOSE 106 mg/dL (74-106); POTASSIUM 4.5 mmol/L (3.5-5.1); SODIUM SERUM 144 mmol/L (136-145); UREA NITROGEN, BLOOD 22 mg/dL (7-18)
[2020-09-30 06:59] LABS: BASOPHILS % (AUTO) 0.6 % (0.0-2.0); EOSINOPHILS # (AUTO) 0.1 K/uL (0-0.4); EOSINOPHILS % (AUTO) 0.8 % (0.0-4.0); HEMATOCRIT 30.1 % (36-48); HEMOGLOBIN 9.9 g/dL (12.0-16.0); LYMPHOCYTES # (AUTO) 1.9 K/uL (2.5-16.5); LYMPHOCYTES % (AUTO) 28.2 % (20.5-51.1); MEAN CORPUSCULAR HEMOGLOBIN 30 pg (27-31); MEAN CORPUSCULAR HGB CONC 33 g/dL (33-37); MEAN CORPUSCULAR VOLUME 89.9 fL (80-94); MONOCYTES # (AUTO) 0.8 K/uL (0.8-1.0); NEUTROPHILS % (AUTO) 58.4 % (42.2-75.2); PLATELET COUNT (AUTO) 227 K/uL (140-450); RED BLOOD CELL COUNT(AUTO) 3.35 MIL/uL (4.20-5.40); WHITE BLOOD COUNT (AUTO) 6.8 K/uL (4.8-10.8)
[2020-09-30 07:06] LABS: CREATINE KINASE MB 2.3 ng/mL (0-3.6)
--- NOTE | 2020-09-30 07:09 | NUR ---
ALL REPORTS WERE GIVEN. CONTINUATION OF CARE ENDORSED.
--- NOTE | 2020-09-30 07:15 | NUR ---
Received report from pm nurse Bronson. Pt resting in bed, awake, respirations even & nonlabored on O2 @ 2L/min via n/c. Bed alarm on, call light within reach.
[2020-09-30 08:00] VITALS: BP 125/40
[2020-09-30] MEDS ORDERED: FUROSEMIDE 40 MG TAB PO SCH (09:00)
[2020-09-30] MEDS: LOSARTAN 50 MG TAB PO SCH (09:00)
[2020-09-30] MEDS: FUROSEMIDE 40 MG/4 ML VIAL IVP SCH ×2 (09:00→21:02)
[2020-09-30] MEDS: LORATADINE 10 MG TAB PO SCH (09:01)
[2020-09-30] MEDS: ATORVASTATIN 20 MG TAB PO SCH (09:01)
[2020-09-30] MEDS: ASPIRIN 325 MG TAB PO SCH (09:01)
[2020-09-30] MEDS: ESCITALOPRAM 20 MG TAB PO SCH (09:01)
[2020-09-30] MEDS: FERROUS SULFATE 325 MG TABEC PO SCH (09:01)
[2020-09-30] MEDS: MONTELUKAST SODIUM 10 MG TAB PO SCH (09:01)
--- NOTE | 2020-09-30 09:01 | NUR ---
PATIENT AWAKE AND ALERT. BREATHING IS EVEN AND UNLABORED. ROUTINE MEDICATIONS GIVEN. PATIENT COMPLIANT WITH MEDICATION. ALL SAFETY MEASURES IN PLACE. WILL CONTINUE TO MONITOR.
[2020-09-30] MEDS: carvediloL 12.5 MG TAB PO SCH ×2 (09:02→18:13)
[2020-09-30] MEDS: ENOXAPARIN 40 MG/0.4 ML SYR SUBQ SCH (09:10)
[2020-09-30] MEDS: DICLOFENAC 25 MG TABEC PO SCH ×2 (09:44→21:03)
--- NOTE | 2020-09-30 10:33 | NUR ---
PATIENT INFORMED NURSE OF HAVING TWO LOOSE STOOL THIS MORNING AND COMPLAIN OF ABDOMINAL PAIN. PER PATIENT HAS HAD ON AND OFF DIARRHEA FOR SE[address] HARO NOTIFIED ORDERED 4 MG LOPERAMIDE ONE TIME DOSE. LOPERAMIDE AND TYLENOL GIVEN TO PATIENT PER MD ORDERS.
--- NOTE | 2020-09-30 10:35 | NUR ---
PATIENT AWAKE AND ALERT. BREATHING IS EVEN AND UNLABORED. NO ACUTE DISTRESS NOTED. PATIENT REMAINS ON 2 L VIA NASAL CANNULA. DAUGHTER AT BEDSIDE. ALL SAFETY MEASURES IN PLACE. WILL CONTINUE TO MONITOR.
[2020-09-30] MEDS ORDERED: LOPERAMIDE 2 MG CAP PO SCH (11:00)
[2020-09-30 12:00] VITALS: BP 135/47
--- NOTE | 2020-09-30 12:53 | NUR ---
PATIENT HAS BEEN SCREENED AND CATEGORIZED MODERATE NUTRITION RISK. PATIENT WILL BE SEEN WITHIN 3-5 DAYS OF ADMISSION. 10/01/20 10/03/[address]
--- NOTE | 2020-09-30 15:30 | NUR ---
PATIENT SLEEPING. BREATHING IS EVEN AND UNLABORED. DAUGHTER AND SON AT BEDSIDE. ALL SAFETY MEASURES IN PLACE. WILL CONTINUE TO MONITOR.
[2020-09-30 16:00] VITALS: BP 131/43
--- NOTE | 2020-09-30 17:27 | NUR ---
PATIENT AWAKE LAYING IN BED. PATIENT ON ROOM AIR TOLERATING WELL. O2 SATS 96%. NO ACUTE DISTRESS NOTED. ALL SAFETY MEASURES IN PLACE WILL CONTINUE TO MONITOR.
--- NOTE | 2020-09-30 17:40 | NUR ---
PER PATIENT AND DAUGHTER IBUPROFEN HAS BEEN TAKEN AT HOME FOR PAIN MANAGEMENT WITHOUT ANY REACTIONS. MORPHINE HAS ALSO BEEN ADMINISTERED WITHOUT ANY REACTIONS.
--- NOTE | 2020-09-30 19:12 | NUR ---
ENDORSED TO DIRECTOR OF PULMONARY UNIT NURSE OF CONTINUITY OF CARE. PATIENT STABLE. NO ACUTE DISTRESS NOTED BREATHING IS EVEN AND UNLABORED. PATIENT REMAINS WITH LEFT FA 18 G SALINE LOCK. SAFETY MEASURES IN PLACE.
[2020-09-30 20:00] VITALS: BP 117/53
--- NOTE | 2020-09-30 20:00 | NUR ---
RECEIVED REPORT FROM DAY SHIFT RN EARLIER REGARDING PT FOR CONTINUITY OF CARE. RECEIVED PATIENT LAYING DOWN ON BED, A/A/OX4. NO SIGNS AND SYMPTOMS OF DISTRESS NOTED. PT DENIES ANY CHEST PAIN, SOB, PALPITATIONS, AND DIZZINESS. NO COMPLAIN AT THIS TIME. DISCUSS POC WITH THE PT AND VERBALIZED UNDERSTANDING. FALL PRECAUTION IMPLEMENTED AND INSTRUCTED TO CALL FOR ASSISTANCE AT ALL TIMES. CALL LIGHT WITHIN REACH. WILL CONTINUE POC AND MONITORING.
--- NOTE | 2020-09-30 22:00 | NUR ---
ADMINISTERED ALL SCHEDULED MEDICATIONS EARLIER. PATIENT TOLERATED WELL AND PROVIDED TEACHING. NO ADVERSE DRUG REACTION NOTED AND NO REPORTED COMPLAIN FROM THE PT.
[2020-10-01] VITALS: BP 137/56
--- NOTE | 2020-10-01 | NUR ---
PATIENT'S VITAL SIGNS STABLE, AFEBRILE, SAT 100% ON RA. NO COMPLAIN AT THIS TIME. SB W/ INVERTED T WAVE ON CENTRAL SERVICES TECH, HR 55. WILL CONTINUE TO OBSERVE.
[2020-10-01] MEDS: IPRATROPIUM 0.02% 0.5 MG/2.5 ML NEBU INH SCH ×3 (01:00→12:49)
--- NOTE | 2020-10-01 02:00 | NUR ---
PATIENT ASLEEP, VISIBLE CHEST RISE AND FALL NOTED. SAFETY MEASURES IN PLACE.
[2020-10-01 04:00] VITALS: BP 154/58
--- NOTE | 2020-10-01 04:00 | NUR ---
PATIENT'S VITAL SIGNS STABLE, AFEBRILE, SAT 99% ON RA. NO COMPLAIN AT THIS TIME. SB W/ INVERTED T-WAVE ON WHOLESALE ACCOUNT EXECUTIVE, HR 54. WILL CONTINUE TO OBSERVE.
--- NOTE | 2020-10-01 06:21 | NUR ---
PATIENT STABLE. NO S/S OF DISTRESS NOTED. ALL NEEDS ATTENDED. NO COMPLAIN AT THIS TIME. WILL ENDORSE THE PATIENT TO THE ONCOMING RN FOR CONTINUITY OF CARE.
--- NOTE | 2020-10-01 07:15 | NUR ---
RECEIVED BEDSIDE REPORT FROM CHIEF OPERATOR HYDROFORMER NURSE FOR CONTINUITY OF CARE. PT IS AWAKE AND ALERT. RECEIVING BREATHING TREATMENT CURRENTLY WITH RT AT BEDSIDE. ON RA WITH BREATHING UNLABORED. PT IS AMBULATORY AND CONTINENT. SKIN IS WARM, DRY, AND INTACT. IV IS IN THE LEFT HAND 22 GAUGE SALINE LOCKED. PLAN OF CARE DISCUSSED. PT IS STABLE. FALL PRECAUTIONS IN PLACE.
--- NOTE | 2020-10-01 07:39 | NUR ---
PATIENT STABLE. ENDORSED PATIENT TO DAY RN JOHN PAUL FOR CONTINUITY OF CARE. SIGNING OFF.
[2020-10-01 08:00] VITALS: BP 153/70
--- NOTE | 2020-10-01 09:20 | NUR ---
FAMILY AT BEDSIDE. PT IS AWAKE AND ALERT. EATING BREAKFAST AND TALKING WITH FAMILY. BREATHING IS UNLABORED ON RA. DENIES ANY PAIN AT THIS TIME. PT IS STABLE.
[2020-10-01] MEDS: MONTELUKAST SODIUM 10 MG TAB PO SCH (09:27)
[2020-10-01] MEDS: FUROSEMIDE 40 MG/4 ML VIAL IVP SCH (09:27)
[2020-10-01] MEDS: ESCITALOPRAM 20 MG TAB PO SCH (09:27)
[2020-10-01] MEDS: carvediloL 12.5 MG TAB PO SCH (09:27)
[2020-10-01] MEDS: LORATADINE 10 MG TAB PO SCH (09:28)
[2020-10-01] MEDS: ATORVASTATIN 20 MG TAB PO SCH (09:28)
[2020-10-01] MEDS: ASPIRIN 325 MG TAB PO SCH (09:28)
[2020-10-01] MEDS: DICLOFENAC 25 MG TABEC PO SCH (09:28)
[2020-10-01] MEDS: ENOXAPARIN 40 MG/0.4 ML SYR SUBQ SCH (09:31)
[2020-10-01] MEDS: FERROUS SULFATE 325 MG TABEC PO SCH (09:32)
[2020-10-01] MEDS: LOSARTAN 50 MG TAB PO SCH (10:49)
--- NOTE | 2020-10-01 11:15 | NUR ---
PT IS TALKING TO FAMILY AT BEDSIDE. NO PAIN AT THIS TIME. BREATHING IS UNLABORED. PT IS STABLE.
--- NOTE | 2020-10-01 11:37 | NUR ---
SPOKE TO DR. LEON ON THE PHONE. HE EXPRESSED THAT FROM CARDIOLOGY STANDPOINT PT IS ABLE TO BE DC'D TODAY AND FOLLOW UP IN HIS OFFICE IN ONE WEEK.
[2020-10-01 12:00] VITALS: BP 126/48
--- NOTE | 2020-10-01 12:54 | NUR ---
PT SITTING UP IN BED. NO DISTRESS NOTED. IV IS PATENT AND INTACT. TALKING TO FAMILY AT BEDSIDE. DENIES DIFFICULTY BREATHING OR PAIN. PT IS STABLE.
--- NOTE | 2020-10-01 14:40 | NUR ---
SPOKE TO DR. HARO. UPDATED HIM ON THE STATUS OF THE PT. ALL QUESTIONS ANSWERED. D/C ORDER WAS PLACED.
--- NOTE | 2020-10-01 15:15 | NUR ---
FAMILY AT BEDSIDE. PT WILL BE DC'D SOON. PT IS STABLE. NO CHEST PAIN OR RESP. DISTRESS. NO COMPLAINTS FROM PT.
[2020-10-01 15:29] VITALS: BP 126/48
[2020-10-01 16:00] VITALS: BP 154/62
--- NOTE | 2020-10-01 16:45 | NUR ---
PT DISCHARGED VIA WHEELCHAIR ACCOMPANIED BY FAMILY. VS ARE STABLE. NO DISTRESS NOTED. DISCHARGE INSTRUCTIONS EXPLAINED.
== END 2020-10-01 16:45 | disposition home or self-care (01) | DRG 291 ==
LOC: MED 07:21 → MTU 13:15
PROVIDERS: ADMIT Hospitalist; ATTEND Hospitalist
DX: I11.0 Hypertensive heart disease with heart failure (principal); J96.01 Acute respiratory failure with hypoxia; I50.31 Acute diastolic (congestive) heart failure; Z20.822 Contact with and (suspected) exposure to COVID-19; E11.9 Type 2 diabetes mellitus without complications; I25.10 Atherosclerotic heart disease of native coronary artery without angina pectoris; E78.5 Hyperlipidemia, unspecified; J44.9 Chronic obstructive pulmonary disease, unspecified; D64.9 Anemia, unspecified; Z88.0 Allergy status to penicillin; Z88.8 Allergy status to other drugs, medicaments and biological substances; Z79.82 Long term (current) use of aspirin; Z79.899 Other long term (current) drug therapy; Z95.5 Presence of coronary angioplasty implant and graft; Z90.710 Acquired absence of both cervix and uterus
CPT/HCPCS: 36415; 36600; 71045; 80048; 80053; 81001; 82550; 82553; 82803; 83605; 83735; 83880; 84484; 85025; 87040; 87081; 87086; 93005; 94640; 96374; 96375; 96376; 99285; J1650; J1940; J2060; J7613; J7644

== ENCOUNTER 2021-05-24 11:35 | Observation (INO) | payer OTHER, MEDICAID ==
[~2021-05-24] VITALS: Ht 167.6 cm; Wt 77.1 kg
[~2021-05-24 11:35] MED LIST changes: +ASPI-1205 PO; +ATOR10TA PO; -ENAL5TAB34 PO; +FURO-570 PO; -GABA300C PO; +LORA10TA19 PO; +LOSA100T1 PO; -METF1TER PO; +OMEP20EC11 PO; -ORE25 PO; +VOL25 PO
[2021-05-24 11:40] VITALS: BP 159/69
[2021-05-24] MEDS ORDERED: NACL 0.9% 1,000 ML IV SCH (12:10)
[2021-05-24] MEDS ORDERED: MORPHINE SULFATE 4 MG/ML SYR IVP ONE (12:10)
[2021-05-24] MEDS ORDERED: ONDANSETRON 4 MG/2 ML VIAL IVP ONE (12:10)
[2021-05-24 12:31] LABS: APPEARANCE,URINE CLEAR (CLEAR); BILIRUBIN,URINE NEGATIVE (NEGATIVE); BLOOD, URINE NEGATIVE (NEGATIVE); COLOR,URINE YELLOW (YELLOW); LEUKOCYTE ESTERASE ,URINE TRACE (NEGATIVE); NITRITE, URINE NEGATIVE (NEGATIVE); PH,URINE 5.5 (5.0-9.0); UGLUCOSE NEGATIVE (NEGATIVE)
[2021-05-24 12:55] LABS: ALBUMIN 2.5 g/dL (3.4-5.0); ANION GAP 10.9 (8-16); ASPARTATE AMINOTRANSFERASE 21 U/L (15-37); CARBON DIOXIDE 28.3 mmol/L (21-32); CHLORIDE 105 mmol/L (98-107); CREATININE 0.7 mg/dL (0.6-1.3); GLUCOSE 139 mg/dL (74-106); LIPASE 66 U/L (73-393); POTASSIUM 4.2 mmol/L (3.5-5.1); SODIUM SERUM 140 mmol/L (136-145); TOTAL BILIRUBIN 0.2 mg/dL (0.0-1.0); UREA NITROGEN, BLOOD 16 mg/dL (7-18)
[2021-05-24 13:06] LABS: RBC,URINE 0-5 /HPF (0-5)
[2021-05-24 13:07] LABS: TRICHOMONAS,URINE None Seen /HPF (None Seen); YEAST,URINE None Seen /HPF (None Seen)
[2021-05-24 13:08] LABS: CALCIUM OXALATE CRYSTALS,UR None Seen /HPF (None Seen); COARSE GRANULAR CASTS,URINE None Seen /LPF (None Seen); FINE GRANULAR CASTS,URINE None Seen /LPF (None Seen); HYALINE CASTS, URINE None Seen /LPF (None Seen); OTHER CASTS, URINE None Seen /LPF (None Seen); OTHER CRYSTALS,URINE None Seen /HPF (None Seen); RED BLOOD CELL CASTS,URINE None Seen /LPF (None Seen); TRIPLE PHOSPHATE CRYSTAL,UR None Seen /HPF (None Seen); URIC ACID CRYSTALS,URINE None Seen /HPF (None Seen); URINE AMORPHOUS URATE None Seen /HPF (None Seen); WAXY CASTS,URINE None Seen /LPF (None Seen)
[2021-05-24 13:12] LABS: BASOPHILS % (AUTO) 0.4 % (0.0-2.0); EOSINOPHILS # (AUTO) 0.1 K/uL (0-0.4); HEMATOCRIT 25.3 % (36-48); HEMOGLOBIN 8.3 g/dL (12.0-16.0); LYMPHOCYTES # (AUTO) 1.6 K/uL (2.5-16.5); LYMPHOCYTES % (AUTO) 21.9 % (20.5-51.1); MEAN CORPUSCULAR HEMOGLOBIN 29 pg (27-31); MEAN CORPUSCULAR HGB CONC 33 g/dL (33-37); MONOCYTES # (AUTO) 0.6 K/uL (0.8-1.0); MONOCYTES % (AUTO) 8.1 % (1.7-9.3); NEUTROPHILS # (AUTO) 5.2 K/uL (1.8-7.7); NEUTROPHILS % (AUTO) 68.6 % (42.2-75.2); PLATELET COUNT (AUTO) 302 K/uL (140-450); RED BLOOD CELL COUNT(AUTO) 2.88 MIL/uL (4.20-5.40); RED CELL DISTRIBUTION WIDTH 16.7 % (11.6-13.7); WHITE BLOOD COUNT (AUTO) 7.5 K/uL (4.8-10.8)
[2021-05-24] MEDS ORDERED: LEVOFLOXACIN 500 MG/D5W PREMIX 100 ML IV ONE (13:15)
[2021-05-24] MEDS ORDERED: METF1TER PO (13:56)
[2021-05-24] MEDS ORDERED: METO25TA PO (13:56)
[2021-05-24] MEDS ORDERED: NORT10CA17 PO (13:56)
[2021-05-24] MEDS ORDERED: ENAL5TAB48 PO (13:56)
[2021-05-24] MEDS ORDERED: LOPE-202 PO (13:56)
[2021-05-24] MEDS ORDERED: ACETAMINOPHEN 325 MG TAB PO PRN (14:10)
[2021-05-24] MEDS ORDERED: MAGNESIUM OXIDE 400 MG TAB PO PRN (14:10)
[2021-05-24] MEDS ORDERED: ONDANSETRON 4 MG/2 ML VIAL IVP PRN (14:10)
[2021-05-24] MEDS ORDERED: MORPHINE SULFATE 4 MG/ML SYR IVP PRN (14:10)
[2021-05-24] MEDS ORDERED: POTASSIUM CHLORIDE 10 MEQ TABER PO PRN (14:10)
[2021-05-24 14:50] VITALS: BP 163/68
[2021-05-24 16:00] VITALS: BP 163/68
[2021-05-24] MEDS: NACL 0.9% 1,000 ML IV SCH ×2 (16:00→21:09)
[2021-05-24] MEDS: metroNIDAZOLE 250 MG TAB PO SCH (17:59)
[2021-05-24] MEDS: HYDROcodone/APAP 5/325 MG 1 TAB TAB PO PRN (19:54)
[2021-05-24] MEDS ORDERED: ZOLPIDEM 5 MG TAB PO PRN (22:15)
[2021-05-24] MEDS ORDERED: carvediloL 12.5 MG TAB PO SCH (22:15)
[2021-05-25] VITALS: BP 160/55
[2021-05-25] MEDS: NACL 0.9% 1,000 ML IV SCH ×2 (02:40→14:54)
[2021-05-25 06:46] LABS: ALBUMIN 2.4 g/dL (3.4-5.0); ANION GAP 12.2 (8-16); ASPARTATE AMINOTRANSFERASE 20 U/L (15-37); CARBON DIOXIDE 27.1 mmol/L (21-32); CHLORIDE 106 mmol/L (98-107); CREATININE 0.7 mg/dL (0.6-1.3); GLUCOSE 87 mg/dL (74-106); POTASSIUM 4.3 mmol/L (3.5-5.1); SODIUM SERUM 141 mmol/L (136-145); TOTAL BILIRUBIN 0.1 mg/dL (0.0-1.0); UREA NITROGEN, BLOOD 11 mg/dL (7-18)
[2021-05-25 08:00] VITALS: BP 154/59
[2021-05-25] MEDS: DOCUSATE SODIUM 100 MG GELCAP PO SCH (09:21)
[2021-05-25] MEDS: metroNIDAZOLE 250 MG TAB PO SCH ×3 (09:22→17:00)
[2021-05-25] MEDS: HYDROcodone/APAP 5/325 MG 1 TAB TAB PO PRN (09:22)
[2021-05-25] MEDS: ENALAPRIL 5 MG TAB PO SCH (09:23)
[2021-05-25] MEDS: carvediloL 12.5 MG TAB PO SCH ×2 (09:23→20:44)
[2021-05-25] MEDS: ENOXAPARIN 40 MG/0.4 ML SYR SUBQ SCH (09:28)
[2021-05-25 16:00] VITALS: BP 168/64
[2021-05-26] VITALS: BP 135/77
[2021-05-26] MEDS: NACL 0.9% 1,000 ML IV SCH (03:46)
[2021-05-26 06:44] LABS: ALBUMIN 2.3 g/dL (3.4-5.0); ANION GAP 8.7 (8-16); ASPARTATE AMINOTRANSFERASE 15 U/L (15-37); CARBON DIOXIDE 28.5 mmol/L (21-32); CHLORIDE 107 mmol/L (98-107); CREATININE 0.6 mg/dL (0.6-1.3); GLUCOSE 96 mg/dL (74-106); POTASSIUM 4.2 mmol/L (3.5-5.1); SODIUM SERUM 140 mmol/L (136-145); TOTAL BILIRUBIN 0.2 mg/dL (0.0-1.0); UREA NITROGEN, BLOOD 6 mg/dL (7-18)
[2021-05-26 08:00] VITALS: BP 166/72
[2021-05-26] MEDS: carvediloL 12.5 MG TAB PO SCH (08:17)
[2021-05-26] MEDS: ENALAPRIL 5 MG TAB PO SCH (08:17)
[2021-05-26] MEDS: DOCUSATE SODIUM 100 MG GELCAP PO SCH (08:17)
[2021-05-26] MEDS: ENOXAPARIN 40 MG/0.4 ML SYR SUBQ SCH (08:19)
[2021-05-26] MEDS: metroNIDAZOLE 250 MG TAB PO SCH ×2 (08:55→12:30)
[2021-05-26] MEDS: HYDROcodone/APAP 5/325 MG 1 TAB TAB PO PRN (10:21)
[2021-05-26] MEDS ORDERED: ASPI-1822 PO (14:00)
[2021-05-26] MEDS ORDERED: METR-520 PO (14:02)
[2021-05-26] MEDS ORDERED: SULF-58 PO (14:04)
[2021-05-26] MEDS ORDERED: ONDA-188 PO (14:04)
[2021-05-26 14:05] VITALS: BP 128/82
== END 2021-05-26 14:30 | disposition home or self-care (01) ==
LOC: MED 11:35 → MMU 14:13 → MTU 14:22 → MMU 15:20
PROVIDERS: ADMIT Student in an Organized Health Care Education/Training Program; ATTEND Student in an Organized Health Care Education/Training Program
DX: K52.9 Noninfective gastroenteritis and colitis, unspecified (principal); Z20.822 Contact with and (suspected) exposure to COVID-19; K59.00 Constipation, unspecified; R11.2 Nausea with vomiting, unspecified; D72.829 Elevated white blood cell count, unspecified; I10 Essential (primary) hypertension; E78.5 Hyperlipidemia, unspecified; M19.90 Unspecified osteoarthritis, unspecified site; J45.909 Unspecified asthma, uncomplicated; E11.9 Type 2 diabetes mellitus without complications; Z79.82 Long term (current) use of aspirin; Z79.899 Other long term (current) drug therapy; Z88.0 Allergy status to penicillin; Z90.710 Acquired absence of both cervix and uterus
CPT/HCPCS: 36415; 74176; 80053; 81001; 83690; 85025; 87040; 87086; 87426; 96361; 96365; 96366; 96367; 96372; 96375; 96376; 99284; G0378; J0696; J1650; J1956; J2270; J2405; J7030; J7060

== ENCOUNTER 2023-08-25 18:14 | Inpatient (IN) | payer OTHER ==
[~2023-08-25] VITALS: Ht 162.6 cm; Wt 77.1 kg
[~2023-08-25 18:14] MED LIST changes: -ASPI-1205 PO; +ASPI-1822 PO; -CARV3.12 PO; +ENAL5TAB48 PO; -FERR325E14 PO; -LORA10TA19 PO; -LOSA100T1 PO; -MECL-322 PO; -MONT10TA35 PO; -OMEP20EC11 PO; -VOL25 PO
[2023-08-25 18:20] VITALS: BP 99/51; PULSE 66; RESP 18; TEMP 97.1; O2SAT 99
[2023-08-25 19:31] VITALS: O2SAT 100
[2023-08-25] MEDS ORDERED: CRUSHER, PILL MC ONE (20:07)
[2023-08-25] MEDS: diazePAM 5 MG TAB PO ONE (20:17)
[2023-08-25 21:35] LABS: BASOPHILS % (AUTO) 0.2 % (0.0-2.0); EOSINOPHILS % (AUTO) 0.1 % (0.0-4.0); HEMATOCRIT 31.6 % (36-48); HEMOGLOBIN 10.4 g/dL (12.0-16.0); LYMPHOCYTES # (AUTO) 0.7 K/uL (2.5-16.5); LYMPHOCYTES % (AUTO) 9.7 % (20.5-51.1); MEAN CORPUSCULAR HEMOGLOBIN 32 pg (27-31); MEAN CORPUSCULAR HGB CONC 33 g/dL (33-37); MEAN CORPUSCULAR VOLUME 97.4 fL (80-94); MONOCYTES # (AUTO) 0.7 K/uL (0.8-1.0); NEUTROPHILS # (AUTO) 6.2 K/uL (1.8-7.7); PLATELET COUNT (AUTO) 165 K/uL (140-450); RED BLOOD CELL COUNT(AUTO) 3.24 MIL/uL (4.20-5.40); RED CELL DISTRIBUTION WIDTH 18.3 % (11.6-13.7); WHITE BLOOD COUNT (AUTO) 7.6 K/uL (4.8-10.8)
[2023-08-25 21:44] LABS: ANION GAP 14.1 (8-16); CALCIUM 8.1 mg/dL (8.5-10.1); CHLORIDE 100 mmol/L (98-107); CREATININE 1.5 mg/dL (0.6-1.3); GLUCOSE 130 mg/dL (74-106); POTASSIUM 5.1 mmol/L (3.5-5.1); SODIUM SERUM 131 mmol/L (136-145); UREA NITROGEN, BLOOD 30 mg/dL (7-18)
[2023-08-25 21:47] LABS: INR 1.11 (0.8-1.2); PARTIAL THROMBOPLASTIN TIME 22.5 secs (22-35.6); PROTHROMBIN TIME 11.6 secs (10.8-13.4)
[2023-08-25 21:57] VITALS: O2SAT 99
[2023-08-25] MEDS ORDERED: POTASSIUM CHLORIDE 10 MEQ TABER PO PRN (23:15)
[2023-08-25] MEDS ORDERED: KCL 20 MEQ IN 100 mL PREMIX 200 ML IV PRN (23:15)
[2023-08-25] MEDS ORDERED: MAG SULF 2000 MG/WATER PREMIX 50 ML IV PRN (23:15)
[2023-08-25] MEDS ORDERED: ONDANSETRON 4 MG/2 ML VIAL IVP PRN (23:15)
[2023-08-25] MEDS ORDERED: MAGNESIUM OXIDE 400 MG TAB PO PRN (23:15)
[2023-08-25 23:32] VITALS: O2SAT 97
[2023-08-26] VITALS (7 sets, daily range): BP systolic 92–124; BP diastolic 41–67; PULSE 63–75; RESP 18; TEMP 97.4–98.3; O2SAT 95–98
[2023-08-26] MEDS: MORPHINE SULFATE 2 MG/ML SYR IVP PRN (02:14)
[2023-08-26] MEDS: ACETAMINOPHEN 325 MG TAB PO PRN (05:28)
[2023-08-26 07:09] LABS: HEMOGLOBIN 10.2 g/dL (12.0-16.0); WHITE BLOOD COUNT (AUTO) 7.6 K/uL (4.8-10.8)
[2023-08-26 07:10] LABS: BASOPHILS % (AUTO) 0.4 % (0.0-2.0); EOSINOPHILS % (AUTO) 0.3 % (0.0-4.0); HEMATOCRIT 31.5 % (36-48); LYMPHOCYTES % (AUTO) 13.2 % (20.5-51.1); MEAN CORPUSCULAR HEMOGLOBIN 32 pg (27-31); MEAN CORPUSCULAR HGB CONC 33 g/dL (33-37); MEAN CORPUSCULAR VOLUME 98.3 fL (80-94); MONOCYTES % (AUTO) 10.8 % (1.7-9.3); NEUTROPHILS % (AUTO) 75.3 % (42.2-75.2); PLATELET COUNT (AUTO) 157 K/uL (140-450)
[2023-08-26 07:11] LABS: MONOCYTES # (AUTO) 0.8 K/uL (0.8-1.0); NEUTROPHILS # (AUTO) 5.7 K/uL (1.8-7.7)
[2023-08-26 07:49] LABS: ANION GAP 14.7 (8-16); CALCIUM 8.2 mg/dL (8.5-10.1); CARBON DIOXIDE 24.5 mmol/L (21-32); CHLORIDE 102 mmol/L (98-107); CREATININE 1.5 mg/dL (0.6-1.3); GLUCOSE 96 mg/dL (74-106); POTASSIUM 5.2 mmol/L (3.5-5.1); SODIUM SERUM 136 mmol/L (136-145); TOTAL BILIRUBIN 0.5 mg/dL (0.0-1.0); UREA NITROGEN, BLOOD 28 mg/dL (7-18)
[2023-08-26 07:50] LABS: ALANINE AMINOTRANSFERASE 49 U/L (12-78); ALBUMIN 3.4 g/dL (3.4-5.0); ALKALINE PHOSPHATASE 40 U/L (50-136); ASPARTATE AMINOTRANSFERASE 22 U/L (15-37); TOTAL PROTEIN, SERUM 5.8 g/dL (6.4-8.2)
[2023-08-26] MEDS: ATORVASTATIN 20 MG TAB PO SCH (08:51)
[2023-08-26] MEDS: ASPIRIN 81 MG TAB.CHEW PO SCH (08:51)
[2023-08-26] MEDS: ISOSORBIDE MONONITRATE 30 MG TABER PO ONE (11:00)
[2023-08-26] MEDS: CLOPIDOGREL 75 MG TAB PO ONE (11:00)
[2023-08-26] MEDS: HYDROcodone/APAP 5/325 MG 1 TAB TAB PO PRN (22:51)
[2023-08-27] VITALS: BP 106/67; PULSE 68; PULSE 69; RESP 18; TEMP 97.8; O2SAT 98
[2023-08-27 04:00] VITALS: BP 122/67; PULSE 62; PULSE 64; RESP 19; TEMP 98.2; O2SAT 95
[2023-08-27 07:05] LABS: BASOPHILS % (AUTO) 0.4 % (0.0-2.0); EOSINOPHILS # (AUTO) 0.1 K/uL (0-0.4); EOSINOPHILS % (AUTO) 0.9 % (0.0-4.0); HEMATOCRIT 31.8 % (36-48); HEMOGLOBIN 10.4 g/dL (12.0-16.0); LYMPHOCYTES % (AUTO) 15.7 % (20.5-51.1); MEAN CORPUSCULAR HEMOGLOBIN 32 pg (27-31); MEAN CORPUSCULAR HGB CONC 33 g/dL (33-37); MEAN CORPUSCULAR VOLUME 98.5 fL (80-94); MONOCYTES # (AUTO) 0.8 K/uL (0.8-1.0); MONOCYTES % (AUTO) 13.2 % (1.7-9.3); NEUTROPHILS # (AUTO) 4.5 K/uL (1.8-7.7); NEUTROPHILS % (AUTO) 69.8 % (42.2-75.2); PLATELET COUNT (AUTO) 138 K/uL (140-450); RED BLOOD CELL COUNT(AUTO) 3.23 MIL/uL (4.20-5.40); RED CELL DISTRIBUTION WIDTH 20.3 % (11.6-13.7); WHITE BLOOD COUNT (AUTO) 6.5 K/uL (4.8-10.8)
[2023-08-27 07:45] LABS: ALANINE AMINOTRANSFERASE 62 U/L (12-78); ALBUMIN 3.4 g/dL (3.4-5.0); ALKALINE PHOSPHATASE 40 U/L (50-136); ANION GAP 11.5 (8-16); ASPARTATE AMINOTRANSFERASE 33 U/L (15-37); CALCIUM 9.1 mg/dL (8.5-10.1); CARBON DIOXIDE 25.4 mmol/L (21-32); CHLORIDE 104 mmol/L (98-107); CREATININE 1.1 mg/dL (0.6-1.3); GLUCOSE 85 mg/dL (74-106); MAGNESIUM 2.2 mg/dL (1.8-2.4); POTASSIUM 4.9 mmol/L (3.5-5.1); SODIUM SERUM 136 mmol/L (136-145); TOTAL BILIRUBIN 0.5 mg/dL (0.0-1.0); TOTAL PROTEIN, SERUM 5.9 g/dL (6.4-8.2); UREA NITROGEN, BLOOD 25 mg/dL (7-18)
[2023-08-27 08:00] VITALS: BP 122/66; PULSE 66; PULSE 69; PULSE 70; RESP 18; TEMP 97; O2SAT 97
[2023-08-27] MEDS: ISOSORBIDE MONONITRATE 30 MG TABER PO SCH (08:41)
[2023-08-27] MEDS: CLOPIDOGREL 75 MG TAB PO SCH (08:42)
[2023-08-27] MEDS ORDERED: CLOP-68 PO (13:03)
[2023-08-27] MEDS ORDERED: METO25TE47 PO (13:03)
[2023-08-27] MEDS ORDERED: ISOS30TE68 PO (13:03)
[2023-08-27 13:23] VITALS: PULSE 69
[2023-08-27 13:24] VITALS: BP 122/66; PULSE 66; RESP 18; TEMP 97; O2SAT 97
[2023-08-27 13:25] VITALS: BP 122/66; PULSE 66; RESP 18; TEMP 97
[2023-08-28] MEDS ORDERED: METOPROLOL SUCCINATE 50 MG TABER PO SCH (09:00)
== END 2023-08-27 15:00 | disposition home or self-care (01) | DRG 280 ==
LOC: MED 18:14 → MTU 23:12
PROVIDERS: ADMIT Hospitalist; ATTEND Hospitalist
DX: I11.0 Hypertensive heart disease with heart failure (principal); I50.43 Acute on chronic combined systolic (congestive) and diastolic (congestive) heart failure; I21.A1 Myocardial infarction type 2; N17.9 Acute kidney failure, unspecified; E78.5 Hyperlipidemia, unspecified; I25.118 Atherosclerotic heart disease of native coronary artery with other forms of angina pectoris; I25.5 Ischemic cardiomyopathy; M25.511 Pain in right shoulder; Z90.710 Acquired absence of both cervix and uterus; Z88.0 Allergy status to penicillin; Z88.8 Allergy status to other drugs, medicaments and biological substances
CPT/HCPCS: 36415; 71045; 73030; 80048; 80053; 83735; 84484; 85025; 85610; 85730; 87081; 93005; 93925; 99285; J1644; J2270; Q0092

== ENCOUNTER 2023-09-05 10:46 | Emergency (ER) | payer OTHER ==
[~2023-09-05] VITALS: Ht 162.6 cm; Wt 81.6 kg
[~2023-09-05 10:46] MED LIST changes: +CLOP-68 PO; +ISOS30TE68 PO; +METO25TE47 PO
[2023-09-05 10:51] VITALS: BP 112/68; PULSE 115; RESP 12; TEMP 98.2; O2SAT 96
[2023-09-05 11:12] VITALS: BP 100/68; PULSE 93; RESP 12; TEMP 98.2; O2SAT 95
[2023-09-05] MEDS: NACL 0.9% 500 ML IV ONE (12:01)
[2023-09-05] MEDS: MORPHINE SULFATE 2 MG/ML SYR IVP ONE (12:30)
[2023-09-05] MEDS: fentaNYL citrate 0.05 MG/ML VIAL IVP ONE (16:20)
[2023-09-05] MEDS ORDERED: ACET-8905 PO ×2 (17:04→17:24)
== END 2023-09-05 17:50 | disposition home or self-care (01) ==
LOC: MED 10:46
DX: S52.531A Colles' fracture of right radius, initial encounter for closed fracture (principal); S09.8XXA Other specified injuries of head, initial encounter; I10 Essential (primary) hypertension; Z98.890 Other specified postprocedural states; Z79.82 Long term (current) use of aspirin; Z79.1 Long term (current) use of non-steroidal anti-inflammatories (NSAID); Z79.899 Other long term (current) drug therapy; Z88.0 Allergy status to penicillin; Z88.6 Allergy status to analgesic agent; W18.39XA Other fall on same level, initial encounter; Y93.89 Activity, other specified; Y92.89 Other specified places as the place of occurrence of the external cause; Y99.8 Other external cause status
CPT/HCPCS: 25605; 70450; 72125; 73090; 73100; 73110; 73130; 96374; 96375; 99285; J2270; J3010; J7030

== ENCOUNTER 2023-09-15 16:09 | Emergency (ER) | payer OTHER ==
[~2023-09-15] VITALS: Ht 165.1 cm; Wt 80.7 kg
[~2023-09-15 16:09] MED LIST changes: +ACET-8905 PO
[2023-09-15 16:38] VITALS: BP 133/62; PULSE 65; RESP 18; TEMP 98.6; O2SAT 95
[2023-09-15] MEDS: ACETAMINOPHEN EXTRA STRENGTH 500 MG TAB PO ONE (17:33)
[2023-09-15] MEDS: LIDOCAINE 5% 1 EA PATCH TP ONE (17:35)
[2023-09-15] MEDS ORDERED: HYDR-5071 PO (18:17)
[2023-09-15] MEDS: MORPHINE SULFATE 4 MG/ML SYR IM ONE (18:33)
[2023-09-15 18:40] VITALS: BP 145/53; PULSE 67; RESP 20; TEMP 98.6; O2SAT 96
== END 2023-09-15 18:40 | disposition home or self-care (01) ==
LOC: MED 16:09
DX: S46.001A Unspecified injury of muscle(s) and tendon(s) of the rotator cuff of right shoulder, initial encounter (principal); G89.29 Other chronic pain; I10 Essential (primary) hypertension; Z79.1 Long term (current) use of non-steroidal anti-inflammatories (NSAID); Z79.82 Long term (current) use of aspirin; Z79.899 Other long term (current) drug therapy; X58.XXXA Exposure to other specified factors, initial encounter; Y93.89 Activity, other specified; Y92.89 Other specified places as the place of occurrence of the external cause; Y99.8 Other external cause status
CPT/HCPCS: 73030; 96372; 99283; J2270